=== PATIENT | female | born 1940 | race Caucasian/White ===

== ENCOUNTER 2017-06-16 14:48 | Emergency (ER) | payer OTHER, MEDICAID ==
[~2017-06-16] VITALS: Ht 162.6 cm; Wt 83.5 kg
[2017-06-16 14:48] VITALS: BP_SYST 134
[~2017-06-16 14:48] MED LIST: ACET-2358 PO; ALLO100T PO; CALC-766 PO; CHOL200026 PO; FLUT16SP24 NS; FURO-150 PO; MAGN400O4 PO; METO-304 PO; SITA50TA3 PO
[2017-06-16 16:51] LABS: BASOPHILS % (AUTO) 0.4 % (0.0-2.0); EOSINOPHILS # (AUTO) 0.2 K/uL (0.0-0.4); EOSINOPHILS % (AUTO) 3.1 % (0.0-4.0); HEMATOCRIT 35.1 % (36-48); HEMOGLOBIN 11.6 g/dL (12.0-16.0); LYMPHOCYTES % (AUTO) 26.8 % (20.5-51.5); MEAN CORPUSCULAR HEMOGLOBIN 30 pg (27-31); MEAN CORPUSCULAR HGB CONC 33 % (32-36); MEAN CORPUSCULAR VOLUME 91 fL (79.0-98.0); MONOCYTES # (AUTO) 0.5 K/uL (0.0-1.0); MONOCYTES % (AUTO) 6.4 % (1.7-9.3); NEUTROPHILS # (AUTO) 4.8 K/uL (1.8-7.7); NEUTROPHILS % (AUTO) 63.3 % (40.0-70.0); PLATELET COUNT (AUTO) 208 K/uL (130-430); RED BLOOD CELL COUNT(AUTO) 3.87 MIL/uL (4.2-6.2); RED CELL DISTRIBUTION WIDTH 14.1 % (9.0-15.0); WHITE BLOOD COUNT (AUTO) 7.5 K/uL (4.8-10.8)
[2017-06-16 17:42] VITALS: BP_SYST 149
== END 2017-06-16 17:41 | disposition home or self-care (01) ==
LOC: SED 14:48
DX: J40 Bronchitis, not specified as acute or chronic (principal); E11.9 Type 2 diabetes mellitus without complications; I10 Essential (primary) hypertension; E07.9 Disorder of thyroid, unspecified; M19.90 Unspecified osteoarthritis, unspecified site; Q90.9 Down syndrome, unspecified; F79 Unspecified intellectual disabilities; E87.6 Hypokalemia; Z95.0 Presence of cardiac pacemaker
CPT/HCPCS: 36415; 71020-TC; 85025; 99285

== ENCOUNTER 2017-09-08 14:45 | Inpatient (IN) | payer OTHER, MEDICAID ==
[~2017-09-08] VITALS: Ht 162.6 cm; Wt 83.9 kg
[2017-09-08 14:45] VITALS: BP_SYST 106
[2017-09-08 15:58] LABS: BASOPHILS # (AUTO) 0.1 K/uL (0.0-0.2); EOSINOPHILS # (AUTO) 0.1 K/uL (0.0-0.4); EOSINOPHILS % (AUTO) 0.7 % (0.0-4.0); HEMATOCRIT 36.2 % (36-48); HEMOGLOBIN 12.2 g/dL (12.0-16.0); LYMPHOCYTES # (AUTO) 1.7 K/uL (1.0-5.5); MEAN CORPUSCULAR HEMOGLOBIN 31 pg (27-31); MEAN CORPUSCULAR HGB CONC 34 % (32-36); MEAN CORPUSCULAR VOLUME 91 fL (79.0-98.0); MONOCYTES # (AUTO) 0.6 K/uL (0.0-1.0); NEUTROPHILS # (AUTO) 7.4 K/uL (1.8-7.7); NEUTROPHILS % (AUTO) 75.3 % (40.0-70.0); PLATELET COUNT (AUTO) 164 K/uL (130-430); RED BLOOD CELL COUNT(AUTO) 3.98 MIL/uL (4.2-6.2); RED CELL DISTRIBUTION WIDTH 14.4 % (9.0-15.0); WHITE BLOOD COUNT (AUTO) 9.9 K/uL (4.8-10.8)
[2017-09-08 16:09] LABS: ANION GAP 10 (5-15); CALCIUM 10.5 mg/dL (8.4-11.0); CHLORIDE 108 mmol/L (98-107); CREATININE 1.75 mg/dL (0.55-1.30); GLUCOSE 141 mg/dL (70-99); POTASSIUM 4.2 mmol/L (3.5-5.1); SODIUM SERUM 142 mmol/L (136-145); UREA NITROGEN, BLOOD 61 mg/dL (8-21)
[2017-09-08 16:10] LABS: INR 1.1 (0.8-1.2)
[2017-09-08] MEDS ORDERED: SPIR25TA4 PO (16:10)
[2017-09-08] MEDS ORDERED: CARV6.2554 PO (16:10)
[2017-09-08] MEDS ORDERED: LEVO100T9 PO (16:10)
[2017-09-08] MEDS ORDERED: DOCU-144 PO (16:10)
[2017-09-08] MEDS ORDERED: LOSA25TA3 PO (16:10)
[2017-09-08] MEDS ORDERED: FOLI-43 PO (16:10)
[2017-09-08] MEDS ORDERED: LIP10 PO (16:10)
[2017-09-08] MEDS ORDERED: ASPI325T2 PO (16:10)
[2017-09-08] MEDS ORDERED: APRE30TA2 PO (16:10)
[2017-09-08] MEDS ORDERED: FERR-57 PO (16:10)
[2017-09-08] MEDS ORDERED: SODI650T PO (16:10)
[2017-09-08] MEDS ORDERED: VIT1CAPS27 PO (16:10)
[2017-09-08] MEDS ORDERED: POLY17PO4 PO (16:10)
[2017-09-08] MEDS ORDERED: OMEP40CA33 PO (16:10)
[2017-09-08] MEDS ORDERED: AMIO100T4 PO (16:10)
[2017-09-08 16:14] LABS: ALANINE AMINOTRANSFERASE 24 U/L (12-78); ALBUMIN 3.3 g/dL (3.4-4.8); ASPARTATE AMINOTRANSFERASE 28 U/L (10-37)
[2017-09-08 16:25] LABS: BILIRUBIN,URINE NEGATIVE (NEGATIVE); CLARITY/URINE CLEAR (CLEAR); COLOR,URINE YELLOW (YELLOW); GLUCOSE,URINE NEGATIVE (NEGATIVE); KETONES,URINE NEGATIVE (NEGATIVE); LEUKOCYTE ESTERASE ,URINE NEGATIVE (NEGATIVE); NITRITE, URINE NEGATIVE (NEGATIVE); PROTEIN URINE NEGATIVE (NEGATIVE); UROBILINOGEN,URINE 0.2 (0.2-1.0)
[2017-09-08 16:26] LABS: BLOOD, URINE TRACE (NEGATIVE); RBC,URINE NONE SEEN /HPF (0-3); WBC,URINE NONE SEEN /HPF (0-3)
[2017-09-08 16:27] LABS: BACTERIA,URINE FEW /HPF (None Seen); MUCUS,URINE None Seen /LPF (None Seen)
[2017-09-08 19:48] VITALS: BP_SYST 97
[2017-09-08] MEDS ORDERED: ACETAMINOPHEN 650 MG PO SCH (21:45)
[2017-09-08] MEDS ORDERED: DOCUSATE SODIUM 100 MG CAPSULE PO PRN (21:45)
[2017-09-08] MEDS ORDERED: ENOXAPARIN SODIUM 40 MG/0.4 ML SYRINGE SUBCUT ONE (21:45)
[2017-09-08] MEDS ORDERED: MORPHINE 2 MG/ML INJ. SYRINGE IVP PRN (22:15)
[2017-09-08] MEDS ORDERED: ONDANSETRON HCL 4 MG/2 ML VIAL IVP PRN (22:15)
[2017-09-08] MEDS: traMADol HCL HCL 50 MG TABLET (ULTRAM) PO PRN (23:15)
[2017-09-08 23:59] VITALS: BP_SYST 124
[2017-09-09 03:58] VITALS: BP_SYST 122
[2017-09-09] MEDS: LEVOTHYROXINE SODIUM 0.1 MG TABLET PO SCH (06:19)
[2017-09-09] MEDS: traMADol HCL HCL 50 MG TABLET (ULTRAM) PO PRN ×3 (06:22→21:24)
[2017-09-09 06:30] LABS: BASOPHILS # (AUTO) 0.1 K/uL (0.0-0.2); BASOPHILS % (AUTO) 0.8 % (0.0-2.0); EOSINOPHILS # (AUTO) 0.2 K/uL (0.0-0.4); EOSINOPHILS % (AUTO) 2.6 % (0.0-4.0); HEMATOCRIT 33.3 % (36-48); HEMOGLOBIN 10.9 g/dL (12.0-16.0); LYMPHOCYTES # (AUTO) 1.7 K/uL (1.0-5.5); LYMPHOCYTES % (AUTO) 20.7 % (20.5-51.5); MEAN CORPUSCULAR HEMOGLOBIN 30 pg (27-31); MEAN CORPUSCULAR HGB CONC 33 % (32-36); MEAN CORPUSCULAR VOLUME 91 fL (79.0-98.0); MONOCYTES # (AUTO) 0.5 K/uL (0.0-1.0); MONOCYTES % (AUTO) 6.2 % (1.7-9.3); NEUTROPHILS # (AUTO) 5.6 K/uL (1.8-7.7); NEUTROPHILS % (AUTO) 69.7 % (40.0-70.0); PLATELET COUNT (AUTO) 150 K/uL (130-430); RED BLOOD CELL COUNT(AUTO) 3.64 MIL/uL (4.2-6.2); RED CELL DISTRIBUTION WIDTH 14.1 % (9.0-15.0); WHITE BLOOD COUNT (AUTO) 8.1 K/uL (4.8-10.8)
[2017-09-09 07:24] LABS: ANION GAP 7 (5-15); CHLORIDE 106 mmol/L (98-107); SODIUM SERUM 139 mmol/L (136-145)
[2017-09-09 07:25] LABS: ALANINE AMINOTRANSFERASE 21 U/L (12-78); ALBUMIN 2.9 g/dL (3.4-4.8); ASPARTATE AMINOTRANSFERASE 22 U/L (10-37); CALCIUM 9.9 mg/dL (8.4-11.0); CREATININE 1.72 mg/dL (0.55-1.30); GLUCOSE 128 mg/dL (70-99); TOTAL BILIRUBIN 0.9 mg/dL (0.0-1.0); UREA NITROGEN, BLOOD 61 mg/dL (8-21); URIC ACID 5.1 mg/dL (2.4-7.0)
[2017-09-09 07:26] LABS: CHOLESTEROL 108 mg/dL (<200); TRIGLYCERIDES 146 mg/dL (30-150)
[2017-09-09 07:27] LABS: HDL CHOLESTEROL 44 mg/dL (>55); LDL CHOLESTEROL 57 mg/dL (<100)
[2017-09-09 07:50] VITALS: BP_SYST 87
[2017-09-09 07:53] LABS: THYROID STIMULATING HORMONE 1.39 uIu/mL (0.36-3.74)
[2017-09-09] MEDS ORDERED: CARVEDILOL 6.25 MG TABLET (COREG) PO SCH (09:00)
[2017-09-09] MEDS ORDERED: COPPER PO SCH (09:00)
[2017-09-09] MEDS ORDERED: LUT PO SCH (09:00)
[2017-09-09] MEDS: OTEZLA PO SCH ×2 (09:00→21:00)
[2017-09-09] MEDS ORDERED: ZNOX PO SCH (09:00)
[2017-09-09] MEDS ORDERED: NON-FORMULARY MEDICATION (Apremilast (Otezla) 30 MG) PO SCH (09:00)
[2017-09-09] MEDS ORDERED: [UNRECOGNIZED DRUG - OTHER] PO SCH (09:00)
[2017-09-09] MEDS ORDERED: VITE AC PO SCH (09:00)
[2017-09-09] MEDS ORDERED: VIT C PO SCH (09:00)
[2017-09-09] MEDS: APREMILAST PO SCH ×2 (09:00→21:00)
[2017-09-09] MEDS: [UNRECOGNIZED DRUG - OTHER] PO SCH (09:00)
[2017-09-09] MEDS: SODIUM BICARBONATE 650 MG TABLET PO SCH (09:40)
[2017-09-09] MEDS: ATORVASTATIN 10 MG TABLET PO SCH (09:41)
[2017-09-09] MEDS: CHOLECALCIFEROL (VITAMIN D3) 2,000 UNIT TABLET PO SCH (09:41)
[2017-09-09] MEDS: AMIODARONE HCL 200 MG TABLET PO SCH (09:41)
[2017-09-09] MEDS: FOLIC ACID 1 MG TABLET PO SCH (09:41)
[2017-09-09] MEDS: OMEPRAZOLE 20 MG CAPSULE.DR (PriLOSEC) PO SCH (09:41)
[2017-09-09] MEDS: ASPIRIN 325 MG TABLET PO SCH (09:42)
[2017-09-09] MEDS: FUROSEMIDE 20 MG TABLET PO SCH (09:42)
[2017-09-09] MEDS: LOSARTAN POTASSIUM 25 MG TABLET PO SCH (09:42)
[2017-09-09] MEDS: ALLOPURINOL 100 MG TABLET (ZYLOPRIM) PO SCH (09:42)
[2017-09-09] MEDS: FERROUS SULFATE 325 MG TABLET.DR PO SCH (09:42)
[2017-09-09] MEDS: CARVEDILOL 6.25 MG TABLET (COREG) PO SCH ×2 (09:43→21:25)
[2017-09-09] MEDS: SPIRONOLACTONE 25 MG TABLET (ALDACTONE) PO SCH (09:44)
[2017-09-09] MEDS: POLYETHYLENE GLYCOL 3350, 17 GM/ POWD.PACK PO SCH (09:44)
[2017-09-09] MEDS ORDERED: ACETAMINOPHEN 325 MG TABLET PO PRN (09:45)
[2017-09-09] MEDS: FLUTICASONE PROPIONATE 50 mCg/SPRAY 16 GM NS SCH (10:50)
[2017-09-09 11:34] VITALS: BP_SYST 101
[2017-09-09 15:15] VITALS: BP_SYST 99
[2017-09-09 20:20] VITALS: BP_SYST 100
[2017-09-09] MEDS ORDERED: ENOXAPARIN SODIUM 40 MG/0.4 ML SYRINGE SUBCUT SCH (21:00)
[2017-09-09] MEDS: ENOXAPARIN SODIUM 40 MG/0.4 ML SYRINGE SUBCUT SCH (21:25)
[2017-09-09 23:48] VITALS: BP_SYST 92
[2017-09-10 03:44] VITALS: BP_SYST 106
[2017-09-10] MEDS: LEVOTHYROXINE SODIUM 0.1 MG TABLET PO SCH (06:11)
[2017-09-10 07:45] VITALS: BP_SYST 83
[2017-09-10] MEDS: FERROUS SULFATE 325 MG TABLET.DR PO SCH (08:54)
[2017-09-10] MEDS: CHOLECALCIFEROL (VITAMIN D3) 2,000 UNIT TABLET PO SCH (08:54)
[2017-09-10] MEDS: FOLIC ACID 1 MG TABLET PO SCH (08:54)
[2017-09-10] MEDS: OMEPRAZOLE 20 MG CAPSULE.DR (PriLOSEC) PO SCH (08:54)
[2017-09-10] MEDS: ALLOPURINOL 100 MG TABLET (ZYLOPRIM) PO SCH (08:55)
[2017-09-10] MEDS: ATORVASTATIN 10 MG TABLET PO SCH (08:55)
[2017-09-10] MEDS: SODIUM BICARBONATE 650 MG TABLET PO SCH (08:55)
[2017-09-10] MEDS: traMADol HCL HCL 50 MG TABLET (ULTRAM) PO PRN (08:56)
[2017-09-10] MEDS: ASPIRIN 325 MG TABLET PO SCH (08:56)
[2017-09-10] MEDS: AMIODARONE HCL 200 MG TABLET PO SCH (08:57)
[2017-09-10] MEDS: POLYETHYLENE GLYCOL 3350, 17 GM/ POWD.PACK PO SCH (08:58)
[2017-09-10] MEDS: OTEZLA PO SCH ×2 (09:00→21:00)
[2017-09-10] MEDS: CARVEDILOL 6.25 MG TABLET (COREG) PO SCH ×2 (09:00→20:55)
[2017-09-10] MEDS: FUROSEMIDE 20 MG TABLET PO SCH (09:00)
[2017-09-10] MEDS: LOSARTAN POTASSIUM 25 MG TABLET PO SCH (09:00)
[2017-09-10] MEDS: APREMILAST PO SCH ×2 (09:00→21:00)
[2017-09-10] MEDS: [UNRECOGNIZED DRUG - OTHER] PO SCH (09:00)
[2017-09-10] MEDS: SPIRONOLACTONE 25 MG TABLET (ALDACTONE) PO SCH (09:00)
[2017-09-10] MEDS: FLUTICASONE PROPIONATE 50 mCg/SPRAY 16 GM NS SCH (09:08)
[2017-09-10] MEDS ORDERED: MILK OF MAGNESIA 30 ML UDC PO PRN (09:30)
[2017-09-10 11:27] VITALS: BP_SYST 109
[2017-09-10] MEDS ORDERED: LACTULOSE 20 GM/30 ML UDC PO ONE (12:00)
[2017-09-10] MEDS: METHYL SALICYLE/MENTHOL 28 GM OINT..GM. TP SCH ×2 (15:00→21:00)
[2017-09-10 16:51] VITALS: BP_SYST 111
[2017-09-10 20:00] VITALS: BP_SYST 84
[2017-09-10] MEDS: ENOXAPARIN SODIUM 40 MG/0.4 ML SYRINGE SUBCUT SCH (21:54)
[2017-09-10 23:53] VITALS: BP_SYST 96
[2017-09-11 04:01] VITALS: BP_SYST 115
[2017-09-11] MEDS: LEVOTHYROXINE SODIUM 0.1 MG TABLET PO SCH (06:31)
[2017-09-11 06:34] LABS: BASOPHILS % (AUTO) 0.5 % (0.0-2.0); EOSINOPHILS # (AUTO) 0.2 K/uL (0.0-0.4); EOSINOPHILS % (AUTO) 2.3 % (0.0-4.0); HEMOGLOBIN 9.6 g/dL (12.0-16.0); LYMPHOCYTES # (AUTO) 2.2 K/uL (1.0-5.5); MEAN CORPUSCULAR HEMOGLOBIN 30 pg (27-31); MEAN CORPUSCULAR HGB CONC 33 % (32-36); MEAN CORPUSCULAR VOLUME 91 fL (79.0-98.0); MONOCYTES # (AUTO) 0.6 K/uL (0.0-1.0); MONOCYTES % (AUTO) 7.8 % (1.7-9.3); NEUTROPHILS # (AUTO) 4.7 K/uL (1.8-7.7); NEUTROPHILS % (AUTO) 60.4 % (40.0-70.0); PLATELET COUNT (AUTO) 156 K/uL (130-430); RED CELL DISTRIBUTION WIDTH 14.1 % (9.0-15.0); WHITE BLOOD COUNT (AUTO) 7.7 K/uL (4.8-10.8)
[2017-09-11 06:56] LABS: ALANINE AMINOTRANSFERASE 30 U/L (12-78); ALBUMIN 2.6 g/dL (3.4-4.8); ANION GAP 10 (5-15); ASPARTATE AMINOTRANSFERASE 27 U/L (10-37); CALCIUM 9.1 mg/dL (8.4-11.0); CHLORIDE 97 mmol/L (98-107); CREATININE 2.89 mg/dL (0.55-1.30); GLUCOSE 120 mg/dL (70-99); POTASSIUM 5.3 mmol/L (3.5-5.1); SODIUM SERUM 130 mmol/L (136-145); TOTAL BILIRUBIN 0.9 mg/dL (0.0-1.0)
[2017-09-11 07:26] LABS: UREA NITROGEN, BLOOD 104 mg/dL (8-21)
[2017-09-11 08:22] VITALS: BP_SYST 109
[2017-09-11] MEDS: FLUTICASONE PROPIONATE 50 mCg/SPRAY 16 GM NS SCH (08:36)
[2017-09-11] MEDS: METHYL SALICYLE/MENTHOL 28 GM OINT..GM. TP SCH ×3 (08:36→21:12)
[2017-09-11] MEDS: POLYETHYLENE GLYCOL 3350, 17 GM/ POWD.PACK PO SCH (08:36)
[2017-09-11] MEDS: ATORVASTATIN 10 MG TABLET PO SCH (08:37)
[2017-09-11] MEDS: LACTULOSE 20 GM/30 ML UDC PO SCH (08:37)
[2017-09-11] MEDS: SODIUM BICARBONATE 650 MG TABLET PO SCH (08:37)
[2017-09-11] MEDS: CHOLECALCIFEROL (VITAMIN D3) 2,000 UNIT TABLET PO SCH (08:39)
[2017-09-11] MEDS: ALLOPURINOL 100 MG TABLET (ZYLOPRIM) PO SCH (08:40)
[2017-09-11] MEDS: ASPIRIN 325 MG TABLET PO SCH (08:42)
[2017-09-11] MEDS: FOLIC ACID 1 MG TABLET PO SCH (08:42)
[2017-09-11] MEDS: FERROUS SULFATE 325 MG TABLET.DR PO SCH (08:42)
[2017-09-11] MEDS: SPIRONOLACTONE 25 MG TABLET (ALDACTONE) PO SCH (08:42)
[2017-09-11] MEDS: OMEPRAZOLE 20 MG CAPSULE.DR (PriLOSEC) PO SCH (08:42)
[2017-09-11] MEDS: AMIODARONE HCL 200 MG TABLET PO SCH (08:44)
[2017-09-11] MEDS: OTEZLA PO SCH ×2 (09:00→21:00)
[2017-09-11] MEDS: [UNRECOGNIZED DRUG - OTHER] PO SCH (09:00)
[2017-09-11] MEDS: APREMILAST PO SCH ×2 (09:00→21:00)
[2017-09-11] MEDS: LOSARTAN POTASSIUM 25 MG TABLET PO SCH (09:00)
[2017-09-11] MEDS: CARVEDILOL 6.25 MG TABLET (COREG) PO SCH ×2 (09:00→21:00)
[2017-09-11] MEDS: NACL 0.9% 1,000 ML IV SCH ×2 (09:01→21:16)
[2017-09-11] MEDS: FUROSEMIDE 20 MG/2 ML VIAL IVP SCH ×2 (09:06→21:00)
[2017-09-11] MEDS: traMADol HCL HCL 50 MG TABLET (ULTRAM) PO PRN ×2 (10:59→21:34)
[2017-09-11 12:22] VITALS: BP_SYST 93
[2017-09-11 16:20] VITALS: BP_SYST 113
[2017-09-11 20:00] VITALS: BP_SYST 98
[2017-09-11] MEDS: ENOXAPARIN SODIUM 40 MG/0.4 ML SYRINGE SUBCUT SCH (21:11)
[2017-09-12 00:29] VITALS: BP_SYST 100
[2017-09-12] MEDS: traMADol HCL HCL 50 MG TABLET (ULTRAM) PO PRN ×2 (04:27→15:13)
[2017-09-12] MEDS: NACL 0.9% 1,000 ML IV SCH (04:28)
[2017-09-12] MEDS: LEVOTHYROXINE SODIUM 0.1 MG TABLET PO SCH (06:19)
[2017-09-12 06:27] VITALS: BP_SYST 103
[2017-09-12 06:53] LABS: BASOPHILS % (AUTO) 0.3 % (0.0-2.0); EOSINOPHILS # (AUTO) 0.1 K/uL (0.0-0.4); EOSINOPHILS % (AUTO) 1.9 % (0.0-4.0); HEMATOCRIT 28.5 % (36-48); HEMOGLOBIN 9.4 g/dL (12.0-16.0); LYMPHOCYTES # (AUTO) 1.5 K/uL (1.0-5.5); LYMPHOCYTES % (AUTO) 21.8 % (20.5-51.5); MEAN CORPUSCULAR HEMOGLOBIN 30 pg (27-31); MEAN CORPUSCULAR HGB CONC 33 % (32-36); MEAN CORPUSCULAR VOLUME 90 fL (79.0-98.0); MONOCYTES # (AUTO) 0.5 K/uL (0.0-1.0); MONOCYTES % (AUTO) 7.5 % (1.7-9.3); NEUTROPHILS # (AUTO) 4.8 K/uL (1.8-7.7); NEUTROPHILS % (AUTO) 68.5 % (40.0-70.0); PLATELET COUNT (AUTO) 148 K/uL (130-430); RED BLOOD CELL COUNT(AUTO) 3.17 MIL/uL (4.2-6.2); RED CELL DISTRIBUTION WIDTH 14.2 % (9.0-15.0); WHITE BLOOD COUNT (AUTO) 6.9 K/uL (4.8-10.8)
[2017-09-12 07:15] LABS: ALANINE AMINOTRANSFERASE 25 U/L (12-78); ALBUMIN 2.5 g/dL (3.4-4.8); ANION GAP 10 (5-15); ASPARTATE AMINOTRANSFERASE 22 U/L (10-37); CALCIUM 9.1 mg/dL (8.4-11.0); CHLORIDE 98 mmol/L (98-107); GLUCOSE 131 mg/dL (70-99); SODIUM SERUM 129 mmol/L (136-145); TOTAL BILIRUBIN 0.8 mg/dL (0.0-1.0); UREA NITROGEN, BLOOD 100 mg/dL (8-21)
[2017-09-12] MEDS: FUROSEMIDE 20 MG/2 ML VIAL IVP SCH (09:00)
[2017-09-12] MEDS: CARVEDILOL 6.25 MG TABLET (COREG) PO SCH (09:00)
[2017-09-12] MEDS: LOSARTAN POTASSIUM 25 MG TABLET PO SCH (09:00)
[2017-09-12] MEDS: OTEZLA PO SCH (09:00)
[2017-09-12] MEDS: APREMILAST PO SCH (09:00)
[2017-09-12] MEDS: [UNRECOGNIZED DRUG - OTHER] PO SCH (09:00)
[2017-09-12 09:05] VITALS: BP_SYST 106
[2017-09-12] MEDS: POLYETHYLENE GLYCOL 3350, 17 GM/ POWD.PACK PO SCH (09:25)
[2017-09-12] MEDS: FLUTICASONE PROPIONATE 50 mCg/SPRAY 16 GM NS SCH (09:25)
[2017-09-12] MEDS: LACTULOSE 20 GM/30 ML UDC PO SCH (09:25)
[2017-09-12] MEDS: OMEPRAZOLE 20 MG CAPSULE.DR (PriLOSEC) PO SCH (09:28)
[2017-09-12] MEDS: FERROUS SULFATE 325 MG TABLET.DR PO SCH (09:28)
[2017-09-12] MEDS: ATORVASTATIN 10 MG TABLET PO SCH (09:28)
[2017-09-12] MEDS: METHYL SALICYLE/MENTHOL 28 GM OINT..GM. TP SCH (09:28)
[2017-09-12] MEDS: SODIUM BICARBONATE 650 MG TABLET PO SCH (09:28)
[2017-09-12] MEDS: FOLIC ACID 1 MG TABLET PO SCH (09:28)
[2017-09-12] MEDS: ASPIRIN 325 MG TABLET PO SCH (09:28)
[2017-09-12] MEDS: AMIODARONE HCL 200 MG TABLET PO SCH (09:30)
[2017-09-12] MEDS: ALLOPURINOL 100 MG TABLET (ZYLOPRIM) PO SCH (09:30)
[2017-09-12] MEDS: SPIRONOLACTONE 25 MG TABLET (ALDACTONE) PO SCH (09:31)
[2017-09-12] MEDS: CHOLECALCIFEROL (VITAMIN D3) 2,000 UNIT TABLET PO SCH (09:32)
[2017-09-12 11:40] VITALS: BP_SYST 123
[2017-09-12 13:08] VITALS: BP_SYST 123
== END 2017-09-12 15:25 | DRG 291 ==
LOC: SED 14:45 → STU 18:53
PROVIDERS: ADMIT Internal Medicine; ATTEND Internal Medicine
DX: I13.0 Hypertensive heart and chronic kidney disease with heart failure and stage 1 through stage 4 chronic kidney disease, or unspecified chronic kidney disease (principal); I50.43 Acute on chronic combined systolic (congestive) and diastolic (congestive) heart failure; E11.22 Type 2 diabetes mellitus with diabetic chronic kidney disease; N18.4 Chronic kidney disease, stage 4 (severe); G82.20 Paraplegia, unspecified; S29.9XXA Unspecified injury of thorax, initial encounter; I42.0 Dilated cardiomyopathy; E03.9 Hypothyroidism, unspecified; E66.9 Obesity, unspecified; E78.5 Hyperlipidemia, unspecified; F79 Unspecified intellectual disabilities; M19.90 Unspecified osteoarthritis, unspecified site; M81.0 Age-related osteoporosis without current pathological fracture; E87.6 Hypokalemia; M10.9 Gout, unspecified; I48.0 Paroxysmal atrial fibrillation; W18.39XA Other fall on same level, initial encounter; Z95.0 Presence of cardiac pacemaker; Q90.9 Down syndrome, unspecified; Z88.1 Allergy status to other antibiotic agents; Z88.0 Allergy status to penicillin; Z79.899 Other long term (current) drug therapy; Y93.89 Activity, other specified; Y92.89 Other specified places as the place of occurrence of the external cause; Y99.8 Other external cause status
CPT/HCPCS: 36415; 71010; 72072-TC; 72170-TC; 72192-TC; 73502; 74000-TC; 76770; 80053; 80061; 81000-TC; 82962; 83036; 83735-TC; 83880; 84443-TC; 84484; 84550-TC; 85025; 85610-TC; 93005; 93306; 93970; 97530-GP; 99285; J1650; J1940; J7030

== ENCOUNTER 2017-09-22 15:29 | Inpatient (IN) | payer OTHER, MEDICAID ==
[~2017-09-22] VITALS: Ht 162.6 cm; Wt 90.7 kg
[2017-09-22 15:29] VITALS: BP_SYST 65
[~2017-09-22 15:29] MED LIST changes: +AMIO100T4 PO; +APRE30TA2 PO; +ASPI325T2 PO; +CARV6.2554 PO; +DOCU-144 PO; +FERR-57 PO; +FOLI-43 PO; -FURO-150 PO; +LEVO100T9 PO; +LIP10 PO; +LOSA25TA3 PO; -MAGN400O4 PO; -METO-304 PO; +OMEP40CA33 PO; +POLY17PO4 PO; -SITA50TA3 PO; +SODI650T PO; +SPIR25TA4 PO; +VIT1CAPS27 PO
[2017-09-22] MEDS ORDERED: NACL 0.9% 1,000 ML IV ONE ×2 (16:00)
[2017-09-22 16:11] LABS: HEMATOCRIT 35.5 % (36-48); HEMOGLOBIN 11.8 g/dL (12.0-16.0); MEAN CORPUSCULAR HEMOGLOBIN 31 pg (27-31); MEAN CORPUSCULAR HGB CONC 33 % (32-36); MEAN CORPUSCULAR VOLUME 92 fL (79.0-98.0); PLATELET COUNT (AUTO) 251 K/uL (130-430); RED BLOOD CELL COUNT(AUTO) 3.87 MIL/uL (4.2-6.2); RED CELL DISTRIBUTION WIDTH 14.8 % (9.0-15.0)
[2017-09-22 16:15] LABS: WHITE BLOOD COUNT (AUTO) 37.3 K/uL (4.8-10.8)
[2017-09-22 16:23] LABS: ANION GAP 14 (5-15); CALCIUM 9.3 mg/dL (8.4-11.0); CHLORIDE 103 mmol/L (98-107); CREATININE 3.03 mg/dL (0.55-1.30); GLUCOSE 230 mg/dL (70-99); SODIUM SERUM 132 mmol/L (136-145)
[2017-09-22 16:25] LABS: BAND % (MANUAL) 29 % (0-6); BASOPHILS % (MANUAL) 0 % (0-2); EOSINOPHILS % (MANUAL) 0 % (0-7); LYMPHOCYTES % (MANUAL) 1 % (20-46); MONOCYTES % (MANUAL) 1 % (0-11)
[2017-09-22 16:36] LABS: ALANINE AMINOTRANSFERASE 25 U/L (12-78); ALBUMIN 2.3 g/dL (3.4-4.8); ASPARTATE AMINOTRANSFERASE 18 U/L (10-37); LIPASE 552 U/L (73-393); TOTAL BILIRUBIN 0.6 mg/dL (0.0-1.0)
[2017-09-22] MEDS ORDERED: ASCO500T20 PO (16:44)
[2017-09-22] MEDS ORDERED: DULR10 RC (16:44)
[2017-09-22] MEDS ORDERED: ZIN220 PO (16:44)
[2017-09-22] MEDS ORDERED: HYDR-1189 PO (16:44)
[2017-09-22] MEDS ORDERED: MINO100T3 PO (16:44)
[2017-09-22] MEDS ORDERED: PRED10TA PO (16:44)
[2017-09-22] MEDS ORDERED: ACET-1010 PO (16:44)
[2017-09-22] MEDS ORDERED: MAGN400O4 PO (16:44)
[2017-09-22] MEDS ORDERED: NA P118E RC (16:44)
[2017-09-22 16:47] LABS: POTASSIUM 6.4 mmol/L (3.5-5.1); UREA NITROGEN, BLOOD 118 mg/dL (8-21)
[2017-09-22 16:57] LABS: INR 1.2 (0.8-1.2); PROTHROMBIN TIME 11.7 SECS (9.5-12.5)
[2017-09-22 17:01] LABS: BILIRUBIN,URINE NEGATIVE (NEGATIVE); BLOOD, URINE 2+ (NEGATIVE); CLARITY/URINE CLOUDY (CLEAR); COLOR,URINE RED (YELLOW); GLUCOSE,URINE NEGATIVE (NEGATIVE); KETONES,URINE NEGATIVE (NEGATIVE); LEUKOCYTE ESTERASE ,URINE 2+ (NEGATIVE); NITRITE, URINE NEGATIVE (NEGATIVE); PH,URINE >=9.0 (5.0-8.0); PROTEIN URINE 3+ (NEGATIVE); UROBILINOGEN,URINE 0.2 (0.2-1.0)
[2017-09-22 17:03] LABS: BACTERIA,URINE MANY /HPF (None Seen); MUCUS,URINE None Seen /LPF (None Seen); RBC,URINE >100 /HPF (0-3); WBC,URINE 20-50 /HPF (0-3)
[2017-09-22] MEDS ORDERED: INSULIN REGULAR, HUMAN 10 UNITS/0.1 ML INJ IVP ONE (17:30)
[2017-09-22] MEDS ORDERED: DEXTROSE 50% JECT 50 ML DISP.SYRIN IVP ONE (17:30)
[2017-09-22] MEDS ORDERED: MORPHINE 2 MG/ML INJ. SYRINGE IVP PRN (18:00)
[2017-09-22] MEDS ORDERED: MORPHINE I.V. DRIP 100 ML IV PRN (18:00)
[2017-09-22 18:30] VITALS: BP_SYST 94
[2017-09-22] MEDS ORDERED: MORPHINE PCA 50 mg/50 mL NS 50 ML IV PRN (18:30)
[2017-09-22] MEDS ORDERED: LEVOFLOXACIN 500 MG/D5W 100 ML IV ONE ×2 (18:45→20:33)
[2017-09-22] MEDS ORDERED: BISACODYL 10 MG/SUPPOSITORY RC PRN (18:45)
[2017-09-22] MEDS ORDERED: cefTRIAXone 1 GM in D5W 50 ML IV ONE (18:45)
[2017-09-22] MEDS ORDERED: DEXTROSE 50% JECT 50 ML DISP.SYRIN IVP PRN (18:45)
[2017-09-22] MEDS ORDERED: ACETAMINOPHEN 325 MG TABLET PO PRN (18:45)
[2017-09-22] MEDS ORDERED: SODIUM POLYSTYRENE SULFONATE 15 GM/60 ML UDBTL PO ONE (18:45)
[2017-09-22] MEDS ORDERED: DOCUSATE SODIUM 100 MG CAPSULE PO PRN (18:45)
[2017-09-22 18:46] VITALS: BP_SYST 70
[2017-09-22] MEDS ORDERED: ONDANSETRON HCL 4 MG/2 ML VIAL ONE (19:08)
[2017-09-22] MEDS ORDERED: ONDANSETRON HCL 4 MG/2 ML VIAL IM PRN (19:15)
[2017-09-22 19:18] VITALS: BP_SYST 68
[2017-09-22] MEDS: NACL 0.9% 1,000 ML IV SCH (19:28)
[2017-09-22] MEDS ORDERED: cefTRIAXone 1 GM IVPB PREMIX 50 ML IV ONE (20:34)
[2017-09-22] MEDS: CARVEDILOL 6.25 MG TABLET (COREG) PO SCH (20:55)
[2017-09-22] MEDS ORDERED: NON-FORMULARY MEDICATION (Apremilast (Otezla) 30 MG) PO SCH (21:00)
[2017-09-22 22:52] VITALS: BP_SYST 77
[2017-09-23 00:47] VITALS: BP_SYST 107
[2017-09-23 04:55] VITALS: BP_SYST 87
[2017-09-23] MEDS: NACL 0.9% 1,000 ML IV SCH ×2 (06:04→14:48)
[2017-09-23] MEDS: LEVOTHYROXINE SODIUM 0.1 MG TABLET PO SCH (06:08)
[2017-09-23 06:41] LABS: BASOPHILS % (AUTO) 0.2 % (0.0-2.0); HEMATOCRIT 30.1 % (36-48); LYMPHOCYTES # (AUTO) 0.5 K/uL (1.0-5.5); LYMPHOCYTES % (AUTO) 2.3 % (20.5-51.5); MEAN CORPUSCULAR HEMOGLOBIN 30 pg (27-31); MEAN CORPUSCULAR HGB CONC 33 % (32-36); MEAN CORPUSCULAR VOLUME 91 fL (79.0-98.0); MONOCYTES # (AUTO) 0.1 K/uL (0.0-1.0); MONOCYTES % (AUTO) 0.6 % (1.7-9.3); NEUTROPHILS # (AUTO) 22.3 K/uL (1.8-7.7); NEUTROPHILS % (AUTO) 96.9 % (40.0-70.0); PLATELET COUNT (AUTO) 183 K/uL (130-430); RED CELL DISTRIBUTION WIDTH 14.4 % (9.0-15.0); WHITE BLOOD COUNT (AUTO) 22.9 K/uL (4.8-10.8)
[2017-09-23 06:55] LABS: INR 1.2 (0.8-1.2); PROTHROMBIN TIME 12.5 SECS (9.5-12.5)
[2017-09-23 07:01] LABS: ANION GAP 12 (5-15); CALCIUM 9.2 mg/dL (8.4-11.0); CHLORIDE 105 mmol/L (98-107); CREATININE 3.06 mg/dL (0.55-1.30); GLUCOSE 161 mg/dL (70-99); SODIUM SERUM 132 mmol/L (136-145)
[2017-09-23 07:15] LABS: POTASSIUM 6.2 mmol/L (3.5-5.1); UREA NITROGEN, BLOOD 128 mg/dL (8-21)
[2017-09-23 08:03] VITALS: BP_SYST 89
[2017-09-23] MEDS: SODIUM BICARBONATE 650 MG TABLET PO SCH (08:35)
[2017-09-23] MEDS: HYDROcodone/ACETAMIN 5-325 MG TAB (NORCO/ VICODIN) PO PRN (08:35)
[2017-09-23] MEDS: CHOLECALCIFEROL (VITAMIN D3) 2,000 UNIT TABLET PO SCH (08:36)
[2017-09-23] MEDS: OMEPRAZOLE 20 MG CAPSULE.DR (PriLOSEC) PO SCH (08:36)
[2017-09-23] MEDS: FOLIC ACID 1 MG TABLET PO SCH (08:36)
[2017-09-23] MEDS: ATORVASTATIN 10 MG TABLET PO SCH (08:43)
[2017-09-23] MEDS: POLYETHYLENE GLYCOL 3350, 17 GM/ POWD.PACK PO SCH (08:43)
[2017-09-23] MEDS: AMIODARONE HCL 200 MG TABLET PO SCH (08:44)
[2017-09-23] MEDS: CARVEDILOL 6.25 MG TABLET (COREG) PO SCH (08:44)
[2017-09-23] MEDS: CALCIUM CARBONATE/VITAMIN D3 1 TAB TABLET PO SCH ×4 (08:44→20:39)
[2017-09-23] MEDS: ALLOPURINOL 100 MG TABLET (ZYLOPRIM) PO SCH (08:45)
[2017-09-23] MEDS: FLUTICASONE PROPIONATE 50 mCg/SPRAY 16 GM NS SCH (09:00)
[2017-09-23 12:14] LABS: ANION GAP 12 (5-15); CALCIUM 9.2 mg/dL (8.4-11.0); CHLORIDE 106 mmol/L (98-107); CREATININE 3.12 mg/dL (0.55-1.30); GLUCOSE 179 mg/dL (70-99); SODIUM SERUM 133 mmol/L (136-145)
[2017-09-23 12:43] VITALS: BP_SYST 86
[2017-09-23 13:00] LABS: POTASSIUM 6.4 mmol/L (3.5-5.1); UREA NITROGEN, BLOOD 130 mg/dL (8-21)
[2017-09-23] MEDS ORDERED: SODIUM POLYSTYRENE SULFONATE 15 GM/60 ML UDBTL PO ONE (13:15)
[2017-09-23] MEDS ORDERED: COMMUNICATION ORDER XX ONE (13:30)
[2017-09-23] MEDS ORDERED: SODIUM POLYSTYRENE SULFONATE 15 GM/60 ML UDBTL RC ONE (13:45)
[2017-09-23] MEDS: FUROSEMIDE 100 MG in D5W 90 ML IV SCH (14:46)
[2017-09-23] MEDS ORDERED: SODIUM BICARBONATE 8.4% JECT 50 MEQ/50 ML SYRINGE IV ONE (15:45)
[2017-09-23] MEDS: PREDNISONE 10 MG TABLET PO SCH (16:22)
[2017-09-23 16:25] VITALS: BP_SYST 102
[2017-09-23 17:34] LABS: ANION GAP 10 (5-15); CALCIUM 9.2 mg/dL (8.4-11.0); CHLORIDE 105 mmol/L (98-107); CREATININE 3.16 mg/dL (0.55-1.30); GLUCOSE 187 mg/dL (70-99); SODIUM SERUM 133 mmol/L (136-145)
[2017-09-23 18:04] LABS: POTASSIUM 5.8 mmol/L (3.5-5.1)
[2017-09-23 18:05] LABS: UREA NITROGEN, BLOOD 131 mg/dL (8-21)
[2017-09-23] MEDS ORDERED: SODIUM BICARBONATE 8.4% JECT 50 MEQ/50 ML SYRINGE IVP ONE (19:00)
[2017-09-23] MEDS ORDERED: VANCOMYCIN HCL 1 GM/NS PREMIX 250 ML IV ONE (19:15)
[2017-09-23 20:03] VITALS: BP_SYST 112
[2017-09-23] MEDS ORDERED: VANCOMYCIN HCL 1000 MG/VIAL IV ONE (20:22)
[2017-09-23] MEDS: cefTRIAXone 1 GM in D5W 50 ML IV SCH (22:14)
[2017-09-24] VITALS (7 sets, daily range): BP systolic 95–119
[2017-09-24] MEDS: NACL 0.9% 1,000 ML IV SCH ×3 (02:43→20:45)
[2017-09-24] MEDS: LEVOTHYROXINE SODIUM 0.1 MG TABLET PO SCH (06:04)
[2017-09-24 06:51] LABS: ANION GAP 12 (5-15); CALCIUM 8.4 mg/dL (8.4-11.0); CHLORIDE 103 mmol/L (98-107); CREATININE 2.77 mg/dL (0.55-1.30); GLUCOSE 210 mg/dL (70-99); POTASSIUM 4.8 mmol/L (3.5-5.1); SODIUM SERUM 133 mmol/L (136-145)
[2017-09-24 06:53] LABS: UREA NITROGEN, BLOOD 127 mg/dL (8-21)
[2017-09-24 08:05] LABS: BASOPHILS % (AUTO) 0.1 % (0.0-2.0); HEMATOCRIT 29.3 % (36-48); HEMOGLOBIN 9.7 g/dL (12.0-16.0); LYMPHOCYTES # (AUTO) 0.7 K/uL (1.0-5.5); LYMPHOCYTES % (AUTO) 3.6 % (20.5-51.5); MEAN CORPUSCULAR HEMOGLOBIN 31 pg (27-31); MEAN CORPUSCULAR HGB CONC 33 % (32-36); MEAN CORPUSCULAR VOLUME 92 fL (79.0-98.0); MONOCYTES # (AUTO) 0.2 K/uL (0.0-1.0); MONOCYTES % (AUTO) 0.8 % (1.7-9.3); NEUTROPHILS # (AUTO) 19.4 K/uL (1.8-7.7); PLATELET COUNT (AUTO) 154 K/uL (130-430); RED BLOOD CELL COUNT(AUTO) 3.18 MIL/uL (4.2-6.2); RED CELL DISTRIBUTION WIDTH 14.4 % (9.0-15.0); WHITE BLOOD COUNT (AUTO) 20.3 K/uL (4.8-10.8)
[2017-09-24] MEDS: POLYETHYLENE GLYCOL 3350, 17 GM/ POWD.PACK PO SCH (08:51)
[2017-09-24] MEDS: CHOLECALCIFEROL (VITAMIN D3) 2,000 UNIT TABLET PO SCH (08:52)
[2017-09-24] MEDS: ATORVASTATIN 10 MG TABLET PO SCH (08:52)
[2017-09-24] MEDS: OMEPRAZOLE 20 MG CAPSULE.DR (PriLOSEC) PO SCH (08:52)
[2017-09-24] MEDS: CALCIUM CARBONATE/VITAMIN D3 1 TAB TABLET PO SCH ×3 (08:52→22:04)
[2017-09-24] MEDS: SODIUM BICARBONATE 650 MG TABLET PO SCH (08:54)
[2017-09-24] MEDS: AMIODARONE HCL 200 MG TABLET PO SCH (08:54)
[2017-09-24] MEDS: FOLIC ACID 1 MG TABLET PO SCH (08:54)
[2017-09-24] MEDS: FLUTICASONE PROPIONATE 50 mCg/SPRAY 16 GM NS SCH (08:54)
[2017-09-24] MEDS: ALLOPURINOL 100 MG TABLET (ZYLOPRIM) PO SCH (08:54)
[2017-09-24] MEDS: HYDROcodone/ACETAMIN 5-325 MG TAB (NORCO/ VICODIN) PO PRN ×2 (08:55→22:03)
[2017-09-24 10:06] LABS: NEUTROPHILS % (AUTO) 95.5 % (40.0-70.0)
[2017-09-24] MEDS: INSULIN REGULAR, HUMAN 100 UNITS/ML, 10 ML VIAL (novoLIN R) SUBCUT PRN ×3 (11:30→22:27)
[2017-09-24] MEDS: FUROSEMIDE 100 MG in D5W 90 ML IV SCH (14:44)
[2017-09-24] MEDS ORDERED: VANCOMYCIN HCL 750 MG in NS 250 ML IV SCH (16:00)
[2017-09-24] MEDS: PREDNISONE 10 MG TABLET PO SCH (16:04)
[2017-09-24] MEDS: cefTRIAXone 1 GM in D5W 50 ML IV SCH (22:06)
[2017-09-25 00:42] VITALS: BP_SYST 105
[2017-09-25] MEDS: NACL 0.9% 1,000 ML IV SCH ×2 (02:53→12:38)
[2017-09-25] MEDS: ACETAMINOPHEN 500 MG TABLET PO PRN ×2 (03:39→10:18)
[2017-09-25 06:06] VITALS: BP_SYST 128
[2017-09-25] MEDS: LEVOTHYROXINE SODIUM 0.1 MG TABLET PO SCH (06:20)
[2017-09-25] MEDS: HYDROcodone/ACETAMIN 5-325 MG TAB (NORCO/ VICODIN) PO PRN ×3 (06:24→22:24)
[2017-09-25 06:43] LABS: BASOPHILS % (AUTO) 0.1 % (0.0-2.0); EOSINOPHILS % (AUTO) 0.1 % (0.0-4.0); HEMOGLOBIN 9.7 g/dL (12.0-16.0); LYMPHOCYTES # (AUTO) 0.9 K/uL (1.0-5.5); LYMPHOCYTES % (AUTO) 5.3 % (20.5-51.5); MEAN CORPUSCULAR HEMOGLOBIN 30 pg (27-31); MEAN CORPUSCULAR HGB CONC 32 % (32-36); MEAN CORPUSCULAR VOLUME 93 fL (79.0-98.0); MONOCYTES # (AUTO) 0.2 K/uL (0.0-1.0); MONOCYTES % (AUTO) 1.5 % (1.7-9.3); NEUTROPHILS # (AUTO) 15.4 K/uL (1.8-7.7); PLATELET COUNT (AUTO) 165 K/uL (130-430); RED BLOOD CELL COUNT(AUTO) 3.23 MIL/uL (4.2-6.2); RED CELL DISTRIBUTION WIDTH 14.8 % (9.0-15.0); WHITE BLOOD COUNT (AUTO) 16.5 K/uL (4.8-10.8)
[2017-09-25 07:02] LABS: ANION GAP 11 (5-15); CALCIUM 8.7 mg/dL (8.4-11.0); CHLORIDE 102 mmol/L (98-107); CREATININE 2.15 mg/dL (0.55-1.30); GLUCOSE 206 mg/dL (70-99); POTASSIUM 4.1 mmol/L (3.5-5.1); SODIUM SERUM 134 mmol/L (136-145); UREA NITROGEN, BLOOD 92 mg/dL (8-21)
[2017-09-25 07:28] LABS: ALANINE AMINOTRANSFERASE 22 U/L (12-78); ASPARTATE AMINOTRANSFERASE 14 U/L (10-37); TOTAL BILIRUBIN 0.4 mg/dL (0.0-1.0)
[2017-09-25 08:00] VITALS: BP_SYST 96
[2017-09-25] MEDS: AMIODARONE HCL 200 MG TABLET PO SCH (09:00)
[2017-09-25] MEDS: POLYETHYLENE GLYCOL 3350, 17 GM/ POWD.PACK PO SCH (09:57)
[2017-09-25] MEDS: CHOLECALCIFEROL (VITAMIN D3) 2,000 UNIT TABLET PO SCH (09:57)
[2017-09-25] MEDS: ALLOPURINOL 100 MG TABLET (ZYLOPRIM) PO SCH (09:57)
[2017-09-25] MEDS: CALCIUM CARBONATE/VITAMIN D3 1 TAB TABLET PO SCH ×3 (09:57→21:44)
[2017-09-25] MEDS: OMEPRAZOLE 20 MG CAPSULE.DR (PriLOSEC) PO SCH (09:58)
[2017-09-25] MEDS: FOLIC ACID 1 MG TABLET PO SCH (09:58)
[2017-09-25] MEDS: SODIUM BICARBONATE 650 MG TABLET PO SCH (09:58)
[2017-09-25] MEDS: ATORVASTATIN 10 MG TABLET PO SCH (09:58)
[2017-09-25] MEDS: FLUTICASONE PROPIONATE 50 mCg/SPRAY 16 GM NS SCH (09:59)
[2017-09-25] MEDS ORDERED: VANCOMYCIN HCL 1 GM/NS PREMIX 250 ML IV ONE (10:00)
[2017-09-25] MEDS: INSULIN REGULAR, HUMAN 100 UNITS/ML, 10 ML VIAL (novoLIN R) SUBCUT PRN ×3 (12:40→21:54)
[2017-09-25 13:08] VITALS: BP_SYST 94
[2017-09-25 16:35] VITALS: BP_SYST 109
[2017-09-25] MEDS: FUROSEMIDE 100 MG in D5W 90 ML IV SCH (16:42)
[2017-09-25] MEDS: PREDNISONE 10 MG TABLET PO SCH (17:10)
[2017-09-25 20:00] VITALS: BP_SYST 98
[2017-09-25] MEDS: cefTRIAXone 1 GM in D5W 50 ML IV SCH (21:43)
[2017-09-26 00:50] VITALS: BP_SYST 108
[2017-09-26 03:56] VITALS: BP_SYST 110
[2017-09-26] MEDS: NACL 0.9% 1,000 ML IV SCH (05:26)
[2017-09-26] MEDS: LEVOTHYROXINE SODIUM 0.1 MG TABLET PO SCH (06:25)
[2017-09-26 08:00] VITALS: BP_SYST 89
[2017-09-26 08:04] LABS: HEMATOCRIT 31.4 % (36-48); MEAN CORPUSCULAR HEMOGLOBIN 29 pg (27-31); MEAN CORPUSCULAR HGB CONC 32 % (32-36); MEAN CORPUSCULAR VOLUME 92 fL (79.0-98.0); PLATELET COUNT (AUTO) 182 K/uL (130-430); RED BLOOD CELL COUNT(AUTO) 3.42 MIL/uL (4.2-6.2); RED CELL DISTRIBUTION WIDTH 14.7 % (9.0-15.0); WHITE BLOOD COUNT (AUTO) 11.8 K/uL (4.8-10.8)
[2017-09-26 08:21] LABS: ALANINE AMINOTRANSFERASE 22 U/L (12-78); ALBUMIN 2.2 g/dL (3.4-4.8); ANION GAP 11 (5-15); ASPARTATE AMINOTRANSFERASE 13 U/L (10-37); CALCIUM 8.2 mg/dL (8.4-11.0); CHLORIDE 98 mmol/L (98-107); CREATININE 1.75 mg/dL (0.55-1.30); GLUCOSE 195 mg/dL (70-99); POTASSIUM 3.7 mmol/L (3.5-5.1); SODIUM SERUM 133 mmol/L (136-145); TOTAL BILIRUBIN 0.5 mg/dL (0.0-1.0); UREA NITROGEN, BLOOD 90 mg/dL (8-21); VANCOMYCIN,RANDOM 17.4 ug/mL
[2017-09-26] MEDS: SODIUM BICARBONATE 650 MG TABLET PO SCH (08:52)
[2017-09-26] MEDS: POLYETHYLENE GLYCOL 3350, 17 GM/ POWD.PACK PO SCH (08:52)
[2017-09-26] MEDS: CHOLECALCIFEROL (VITAMIN D3) 2,000 UNIT TABLET PO SCH (08:58)
[2017-09-26] MEDS: FOLIC ACID 1 MG TABLET PO SCH (08:59)
[2017-09-26] MEDS: AMIODARONE HCL 200 MG TABLET PO SCH (09:00)
[2017-09-26] MEDS: FLUTICASONE PROPIONATE 50 mCg/SPRAY 16 GM NS SCH (09:00)
[2017-09-26] MEDS: APREMILAST 30 MG PO SCH ×2 (09:00→21:00)
[2017-09-26] MEDS ORDERED: BALSAM PERU/CASTOR OIL 60 GM OINT...G. TP SCH (09:00)
[2017-09-26] MEDS: ALLOPURINOL 100 MG TABLET (ZYLOPRIM) PO SCH (09:03)
[2017-09-26] MEDS: ATORVASTATIN 10 MG TABLET PO SCH (09:03)
[2017-09-26] MEDS: CALCIUM CARBONATE/VITAMIN D3 1 TAB TABLET PO SCH ×3 (09:03→21:00)
[2017-09-26] MEDS: OMEPRAZOLE 20 MG CAPSULE.DR (PriLOSEC) PO SCH (09:04)
[2017-09-26 09:17] LABS: BAND % (MANUAL) 2 % (0-6)
[2017-09-26 09:18] LABS: BASOPHILS % (MANUAL) 0 % (0-2); EOSINOPHILS % (MANUAL) 0 % (0-7); LYMPHOCYTES % (MANUAL) 12 % (20-46); MONOCYTES % (MANUAL) 3 % (0-11)
[2017-09-26 13:00] VITALS: BP_SYST 104
[2017-09-26 16:25] VITALS: BP_SYST 100
[2017-09-26] MEDS: PREDNISONE 10 MG TABLET PO SCH (16:50)
[2017-09-26] MEDS: INSULIN REGULAR, HUMAN 100 UNITS/ML, 10 ML VIAL (novoLIN R) SUBCUT PRN ×2 (18:56→22:05)
[2017-09-26 20:00] VITALS: BP_SYST 92
[2017-09-26] MEDS: cefTRIAXone 1 GM in D5W 50 ML IV SCH (21:55)
[2017-09-27] VITALS: BP_SYST 122
[2017-09-27 03:33] VITALS: BP_SYST 125
[2017-09-27] MEDS: LEVOTHYROXINE SODIUM 0.1 MG TABLET PO SCH (06:47)
[2017-09-27 07:10] LABS: BASOPHILS # (AUTO) 0.1 K/uL (0.0-0.2); BASOPHILS % (AUTO) 0.9 % (0.0-2.0); EOSINOPHILS # (AUTO) 0.1 K/uL (0.0-0.4); EOSINOPHILS % (AUTO) 1.2 % (0.0-4.0); HEMATOCRIT 30.5 % (36-48); LYMPHOCYTES # (AUTO) 1.2 K/uL (1.0-5.5); LYMPHOCYTES % (AUTO) 12.1 % (20.5-51.5); MEAN CORPUSCULAR HEMOGLOBIN 30 pg (27-31); MEAN CORPUSCULAR HGB CONC 33 % (32-36); MEAN CORPUSCULAR VOLUME 92 fL (79.0-98.0); MONOCYTES # (AUTO) 0.4 K/uL (0.0-1.0); MONOCYTES % (AUTO) 3.9 % (1.7-9.3); NEUTROPHILS # (AUTO) 8.3 K/uL (1.8-7.7); NEUTROPHILS % (AUTO) 81.9 % (40.0-70.0); PLATELET COUNT (AUTO) 149 K/uL (130-430); RED BLOOD CELL COUNT(AUTO) 3.33 MIL/uL (4.2-6.2); RED CELL DISTRIBUTION WIDTH 14.7 % (9.0-15.0); WHITE BLOOD COUNT (AUTO) 10.1 K/uL (4.8-10.8)
[2017-09-27 07:35] LABS: ANION GAP 9 (5-15); CHLORIDE 99 mmol/L (98-107); CREATININE 1.36 mg/dL (0.55-1.30); GLUCOSE 149 mg/dL (70-99); POTASSIUM 3.8 mmol/L (3.5-5.1); SODIUM SERUM 133 mmol/L (136-145); UREA NITROGEN, BLOOD 81 mg/dL (8-21)
[2017-09-27 07:43] LABS: ALANINE AMINOTRANSFERASE 19 U/L (12-78); ASPARTATE AMINOTRANSFERASE 14 U/L (10-37); TOTAL BILIRUBIN 0.5 mg/dL (0.0-1.0)
[2017-09-27 08:51] VITALS: BP_SYST 99
[2017-09-27] MEDS: APREMILAST 30 MG PO SCH (09:00)
[2017-09-27] MEDS: FLUTICASONE PROPIONATE 50 mCg/SPRAY 16 GM NS SCH (09:00)
[2017-09-27] MEDS: CALCIUM CARBONATE/VITAMIN D3 1 TAB TABLET PO SCH (09:00)
[2017-09-27] MEDS: SODIUM BICARBONATE 650 MG TABLET PO SCH (09:00)
[2017-09-27] MEDS: OMEPRAZOLE 20 MG CAPSULE.DR (PriLOSEC) PO SCH (09:00)
[2017-09-27] MEDS: ALLOPURINOL 100 MG TABLET (ZYLOPRIM) PO SCH (09:00)
[2017-09-27] MEDS ORDERED: FUROSEMIDE 40 MG TABLET PO SCH (09:00)
[2017-09-27] MEDS: POLYETHYLENE GLYCOL 3350, 17 GM/ POWD.PACK PO SCH (09:00)
[2017-09-27] MEDS: CHOLECALCIFEROL (VITAMIN D3) 2,000 UNIT TABLET PO SCH (10:24)
[2017-09-27] MEDS: ATORVASTATIN 10 MG TABLET PO SCH (10:24)
[2017-09-27] MEDS: FOLIC ACID 1 MG TABLET PO SCH (10:25)
[2017-09-27] MEDS: AMIODARONE HCL 200 MG TABLET PO SCH (10:32)
[2017-09-27 11:07] VITALS: BP_SYST 96
[2017-09-27 12:21] VITALS: BP_SYST 96
[2017-09-27] MEDS: HYDROcodone/ACETAMIN 5-325 MG TAB (NORCO/ VICODIN) PO PRN (14:10)
== END 2017-09-27 14:45 | DRG 871 ==
LOC: SED 15:29 → STU 17:50
PROVIDERS: ADMIT Internal Medicine Hospice and Palliative Medicine; ATTEND Internal Medicine Hospice and Palliative Medicine
DX: A40.9 Streptococcal sepsis, unspecified (principal); R65.21 Severe sepsis with septic shock; N17.0 Acute kidney failure with tubular necrosis; L89.159 Pressure ulcer of sacral region, unspecified stage; E87.2 Acidosis; E11.22 Type 2 diabetes mellitus with diabetic chronic kidney disease; N18.4 Chronic kidney disease, stage 4 (severe); I42.0 Dilated cardiomyopathy; E87.5 Hyperkalemia; G82.20 Paraplegia, unspecified; I13.0 Hypertensive heart and chronic kidney disease with heart failure and stage 1 through stage 4 chronic kidney disease, or unspecified chronic kidney disease; I50.42 Chronic combined systolic (congestive) and diastolic (congestive) heart failure; D64.9 Anemia, unspecified; B96.4 Proteus (mirabilis) (morganii) as the cause of diseases classified elsewhere; E03.9 Hypothyroidism, unspecified; E66.9 Obesity, unspecified; E78.5 Hyperlipidemia, unspecified; B96.1 Klebsiella pneumoniae [K. pneumoniae] as the cause of diseases classified elsewhere; I48.2 Chronic atrial fibrillation; I48.0 Paroxysmal atrial fibrillation; F03.90 Unspecified dementia, unspecified severity, without behavioral disturbance, psychotic disturbance, mood disturbance, and anxiety; G89.29 Other chronic pain; M54.9 Dorsalgia, unspecified; M19.90 Unspecified osteoarthritis, unspecified site; J44.9 Chronic obstructive pulmonary disease, unspecified; N30.91 Cystitis, unspecified with hematuria; Z16.24 Resistance to multiple antibiotics; Z51.5 Encounter for palliative care; Z66 Do not resuscitate; Z95.0 Presence of cardiac pacemaker; I25.2 Old myocardial infarction; Z68.34 Body mass index [BMI] 34.0-34.9, adult; Z88.0 Allergy status to penicillin; Z88.1 Allergy status to other antibiotic agents; Z79.899 Other long term (current) drug therapy; Z79.82 Long term (current) use of aspirin; Z79.52 Long term (current) use of systemic steroids; Z85.828 Personal history of other malignant neoplasm of skin; Z90.49 Acquired absence of other specified parts of digestive tract; Q90.9 Down syndrome, unspecified; Z74.01 Bed confinement status
CPT/HCPCS: 36415; 71010; 80048; 80053; 80202-TC; 81000-TC; 82962; 83605; 83690-TC; 83880; 84484; 85007; 85025; 85027; 85384-TC; 85610-TC; 85730-TC; 87040-TC; 87081; 87086; 87186-TC; 93005; 96361; 96374; 96375; 99285; A6209; J0696; J1815; J1940; J1956; J2405; J3370; J7030; J7050; J7060; J7512